=== PATIENT | female | born 1945 | race Caucasian/White ===

== ENCOUNTER 2022-04-05 08:27 | Day surgery (SDC) | payer MEDICARE, SELFPAY ==
[2022-04-05 09:28] VITALS: BP 115/75; PULSE 71; RESP 16; TEMP 37.1; O2SAT 98
[2022-04-05] MEDS: Tropicam./Phenyleph. (1/2.5%) 5 ML BTL OD ×3 (09:37→09:51)
--- NOTE | 2022-04-05 10:18 | W.ANESPRE ---
General Info Date of Service Date Performed: 04/05/22 Height: 5 ft 2 in Weight: 57.2 kg Body Mass Index (BMI): 23.1 Surgical Procedure: Operation Date: 04/05/22 11:40 Proposed Procedure Side Surgeon p Cataract Extraction with IOL Implant Right Adriano Reyna MD Meds Allergies and Home Medications Allergies Allergy/AdvReac Type Severity Reaction Status Date / Time acetaminophen [From Percocet] AdvReac Other (See Verified 04/05/22 09:44 Comment) oxycodone [From Percocet] AdvReac Other (See Verified 04/05/22 09:44 Comment) Home Medication Medication Instructions Recorded atorvastatin 10 mg tablet 10 mg PO DIRECTED 04/01/22 Current Visit Medications: Current Medications Generic Name Dose Route Start Last Admin Trade Name Freq PRN Reason Stop Dose Admin Acetaminophen 1,000 mg 04/05/22 06:00 Acetaminophen 500 Mg Tab PO Q4H PRN PRN Miscellaneous Medication 0 ml 04/05/22 06:00 Prednisolone 1%, Moxifloxacin 0.5%, Nepafenac 0.1% 5ml Btl OD DIRECTED [facility] Miscellaneous Medication 0 ml 04/05/22 06:00 04/05/22 09:51 Tropicam./Phenyleph. 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 She states she has an extra bone in her neck. Actinic keratosis Allergic rhinitis Basal cell carcinoma Cough Dermatochalasis of eyelid Disease of liver Diverticulitis History of postoperative nausea and vomiting HLD (hyperlipidemia) Impaired glucose tolerance Insomnia Malignant tumor of breast Osteoporosis Medical History Comments:: PONV; Pt. states sometimes when she comes out of anesthesia she has a bout of vertigo; please change position slowly; chronic cough, this is her baseline Surgical History Surgical History H/O bilateral mastectomy H/O tubal ligation History of bronchoscopy History of carpal tunnel release Hx of biopsy Shave bx per H&P note Tobacco Smoking/Tobacco Use Status: Never Alcohol Alcohol Intake: current Alcohol intake frequency: a few times a month Alcohol type: wine and hard liquor Substance Use Substance use: Never Substance use type: does not use Vital Signs and Lab Results Vital Signs Most Recent Vital Signs in EMR: Most Recent Vital Signs Temp Pulse Resp BP Pulse Ox 37.1 C 71 16 115/75 98 04/05/22 09:28 04/05/22 09:28 04/05/22 09:28 04/05/22 09:28 04/05/22 09:28 Lab Results Blood Type / Crossmatch: No Data to Display Complete Blood Count: No Data to Display Complete Metabolic Panel: No Data to Display Liver Function Panel: No Data to Display Coagulation Panel: No Data to Display Cardiac Panel: No Data to Display Arterial Blood Gas: No Data to Display Venous Blood Gas: No Data to Display Pancreas Panel: No Data to Display Thyroid Panel: No Data to Display Infectious Disease: No Data to Display Blood Cultures: No Data to Display Toxicology Panel: No Data to Display Anesthesia Assessment and Plan Anesthesia History Personal History: Other Family History: No Family History of Anesthesia Complications Exercise Tolerance Exercise Tolerance: Metabolic Equivalents>4 Pertinent Negatives Pertinent Negatives: No Symptoms of GERD Cardiac & Pulmonary Exam Cardiac Exam: Normal S1/S2 Heart Sounds Pulmonary Exam: Clear Bilateral Breath Sounds Implantable Cardiac Device Does patient have a Pacemaker or an ICD?: No Airway Exam Known Difficult Airway: No Mallampati Class: 2 Mouth Opening: Normal (> 3cm) Thyromental Distance: Greater than 3 cm Neck Range of Motion: Full ROM Neck Circumference: Normal Teeth Condition: Normal Dentition ASA Classification ASA Score: ASA 2 Emergency Case?: No NPO Status NPO Status: NPO Clears >2 hours, Solids >8 hours Anesthesia Plan Resuscitation Status: Full Code Anesthesia Technique: MAC Anesthesia Airway Planned: Natural Airway Monitors Used: Standard Monitors
[2022-04-05 10:19] VITALS: BMI 23.1
[2022-04-05] MEDS: Tetracaine 0.5% 4 ML BTL OD (10:57)
[2022-04-05] MEDS: Balanced Salt Soln.-PLUS 500 ML BAG (10:58)
[2022-04-05] MEDS: Duovisc Viscoelastic System EACH 1 EACH (10:58)
[2022-04-05] MEDS: Lidocaine 2% Jelly 6 ML SYR (10:59)
[2022-04-05] MEDS: Povidone-Iodine Ophth 30 ML BTL (11:02)
--- NOTE | 2022-04-05 11:05 | W.PM.DSUDISC ---
Discharge Plan Disposition Patient Disposition: HOME Condition: Good Discharge Details Attending Provider: Adriano Reyna Primary Care Provider: Marissa Luo Home Meds and New Rx's Prescriptions: No Action atorvastatin 10 mg Tablet 10 mg PO DIRECTED Rx Instructions: EVERY OTHER DAY Discharge Instructions Stand Alone Forms: Post-op Topical Cataract, Tessy Cardoza (DSU) Discharge Orders Discharge Orders: Discharge Order (Routine); Ordered 04/05/22 Ordered By: Adriano Reyna DS: Diagnosis Discharge Diagnosis (1) Cortical cataract of right eye: Status: Resolved (2) Nuclear sclerotic cataract of right eye: Status: Resolved (3) Posterior subcapsular age-related cataract, right eye: Status: Resolved
--- NOTE | 2022-04-05 11:07 | ROE_ITS ---
Date of service: 04/05/22 Time of Service: 11:07 Operative Note Operative Note DATE OF PROCEDURE: 04/05/22 PRE-OP DIAGNOSIS: Nuclear/cortical/posterior subcapsular cataract, right eye POST-OP DIAGNOSIS: same PROCEDURE: Cataract extraction using phacoemulsification with intraocular lens implant, right eye SURGEON: Adriano Reyna ANESTHESIA TYPE: Local By Surgeon and MAC Refer to Anesthesia Record ESTIMATED BLOOD LOSS: 0 PATHOLOGY: none sent COMPLICATIONS: None Patient was transported to: same day Patient's condition: stable Implants: Jeffrey & Jeffrey/RUTHANN Tecnis [id number] Indications: Progressive visual loss due to cataract, right eye Procedure Description: CATARACT SURGERY OPERATIVE REPORT PREOPERATIVE DIAGNOSIS: 1. Nuclear/cortical/posterior subcapsular cataract, right eye POSTOPERATIVE DIAGNOSIS: Same OPERATION: 1. Cataract extraction using phacoemulsification with posterior chamber intraocular lens implant, right eye. IOL: IOL Soda Dispenser/Model: Jeffrey & Jeffrey / RUTHANN Tecnis [id number] IOL Power: + 14.0 diopters IOL Serial Number: [id number] Optic Diameter: 6.0mm Haptic/Overall Diameter: 13.0mm PHACO INFO: Aleks AirCast Mobileurion Vision System with OZil and Active Fluidics Cumulative Dispersed Energy (CDE): 6.95 seconds SURGEON: Adriano Reyna MD, PORTER ANESTHESIA: Monitored Anesthesia Care (MAC), with local sub-tenon's anesthetic infiltration COMPLICATIONS: None SPECIMENS: None INDICATIONS FOR PROCEDURE: The patient is a 76-year-old lady with history of diminished visual acuity in her right eye secondary to the development of significant nuclear/cortical/posterior subcapsular cataract. The option of cataract surgery was offered to the patient and she felt she was symptomatic enough that she wished to proceed. PROCEDURE: The correct surgical eye was identified and marked as the right eye and the pupil was dilated in the preoperative area using mydriatics and cycloplegics. The dilated pupil size was 7.0 mm. The patient elected to proceed without oral sedation. The patient was brought to the operating room where cardiopulmonary monitoring was instituted and surgical time-out was performed, confirming the correct operative eye and IOL power. Topical anesthesia was administered and ophthalmic povidone-iodine 5% was instilled into the conjunctival fornices. Lidocaine gel was applied to the cornea and the safia-ocular area was prepped with Betadine 10% solution and draped in the usual sterile fashion for intraocular surgery, including an aperture drape. A Tegaderm transparent film dressing was cut in half and used to cover the lashes and lid margins. Care was taken to sequester the lashes and lid margins under the Tegaderm dressing. A lid speculum was placed between the lids of the operative eye and the Aleks LuxOR Revalia operating microscope was maneuvered into position. Lillian scissors were then used to make a conjunctival buttonhole approximately 6mm posterior to the limbus in the inferonasal quadrant. Blunt dissection was carried out to expose bare sclera, and a blunt-tipped sub-tenon?s anesthesia cannula was introduced and passed posteriorly along the globe where non- preserved plain lidocaine was injected into posterior sub-Tenon?s space. A sideport knife was used to make a paracentesis port inferotemporally. Intraocular phenylephrine/lidocaine was injected into the anterior chamber. The anterior chamber was filled with viscoelastic. A keratome knife was used to construct a 2-plane near-clear corneal tunnel extending 2.0mm into clear cornea superiortemporally. A flap was raised on the anterior capsule and capsulorhexis forceps were used to complete a continuous curvilinear capsulorhexis of 5.5 mm. Balanced salt solution was then used to perform cortical cleaving hydrodissection and nuclear hydrodelineation until the lens could be freely rotated within the capsular bag. The lens nucleus was then disassembled and removed within the capsular bag and iris plane using phacoemulsification. Residual cortical material was removed using the I/A handpiece. The posterior capsule was carefully polished to remove as much residual lens epithelial cells as safely possible. The capsular bag was then inflated and the anterior chamber deepened with viscoelastic. The lens implant described above was inserted into the capsular bag using the RUTHANN [place] Injector. A Kuglen hook was used to dial the IOL into position. Residual viscoelastic was then removed first from posterior to the IOL, then from the anterior chamber using the I/A handpiece. The lens implant was noted to center nicely within the capsular bag. The incisions were stromally hydrated, and the anterior chamber was reformed using BSS. Then 0.5cc of moxifloxacin 1.0mg/ml were injected into the capsular bag and anterior chamber. The incisions were checked with a Weck spear and found to be secure. Several drops of ophthalmic povidone-iodine 5% were then applied to the eye followed by two drops of Imprimis combination prednisolone/moxifloxacin/nepafenac solution. The drapes were removed and a clear plastic protective eye shield was placed over the eye. The patient was then returned to Same Day Surgery in stable condition.
[2022-04-05 11:08] VITALS: BP 128/67; PULSE 71; RESP 18; TEMP 36.4; O2SAT 97
--- NOTE | 2022-04-05 11:27 | W.ANESPOSTOP ---
Postoperative Evaluation Date, Time and Location Date Performed: 04/05/22 Time Performed: 11:08 Patient Location: Day Surgery Unit Vital Signs Most Recent Imported Vital Signs: Most Recent Vital Signs Temp Pulse Resp BP Pulse Ox 36.4 C L 71 18 128/67 97 04/05/22 11:08 04/05/22 11:08 04/05/22 11:08 04/05/22 11:08 04/05/22 11:08 Pain Score Most Recent Pain Score: Most Recent Pain Score Pain Level 0 04/05/22 11:08 Assessment Mental Status: Awake (Alert & Oriented to Patient Baseline) Airway and Respiratory Function: Patent airway with normal (patient baseline) respiratory exam Cardiovascular Function: Hemodynamically Stable Hydration Status: Adequately Hydrated Nausea & Vomiting: No Nausea or Vomiting Pain: Pt. Denies Any Pain Peripheral Nerve Block: Other (Local by Dr. eRyna)
== END 2022-04-05 11:30 | disposition home or self-care (01) ==
LOC: SUR 08:28
PROVIDERS: Visit Provider Ophthalmology
PROC: (CPT 66984; principal; 2022-04-05 11:30)
DX: H25.041 Posterior subcapsular polar age-related cataract, right eye (principal); E78.5 Hyperlipidemia, unspecified; R73.02 Impaired glucose tolerance (oral)
CPT/HCPCS: 66984; V2632

== ENCOUNTER 2022-04-19 08:41 | Day surgery (SDC) | payer MEDICARE, SELFPAY ==
--- NOTE | 2022-04-19 08:24 | W.ANESPRE ---
General Info Date of Service Date Performed: 04/19/22 Height: 5 ft 2 in Weight: 57.2 kg Body Mass Index (BMI): 23.1 Surgical Procedure: Operation Date: 04/19/22 11:40 Proposed Procedure Side Surgeon p Cataract Extraction with IOL Implant Left Adriano Reyna MD Meds Allergies and Home Medications Allergies Allergy/AdvReac Type Severity Reaction Status Date / Time acetaminophen [From Percocet] AdvReac Other (See Verified 04/19/22 09:21 Comment) oxycodone [From Percocet] AdvReac Other (See Verified 04/19/22 09:21 Comment) Home Medication Medication Instructions Recorded atorvastatin 10 mg tablet 10 mg PO DIRECTED 04/01/22 Current Visit Medications: Current Medications Generic Name Dose Route Start Last Admin Trade Name Freq PRN Reason Stop Dose Admin Acetaminophen 1,000 mg 04/19/22 06:00 Acetaminophen 500 Mg Tab PO Q4H PRN PRN Miscellaneous Medication 0 ml 04/19/22 06:00 Prednisolone 1%, Moxifloxacin 0.5%, Nepafenac 0.1% 5ml Btl OS DIRECTED [facility] Miscellaneous Medication 0 ml 04/19/22 06:00 Tropicam./Phenyleph. 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 She states she has an extra bone in her neck. Actinic keratosis Allergic rhinitis Basal cell carcinoma Cough Dermatochalasis of eyelid Disease of liver Diverticulitis History of herniated intervertebral disc History of postoperative nausea and vomiting HLD (hyperlipidemia) Impaired glucose tolerance Insomnia Malignant tumor of breast Osteoporosis Medical History Comments:: PONV; Pt. states sometimes when she comes out of anesthesia she has a bout of vertigo; please change position slowly; chronic cough, this is her baseline Surgical History Surgical History (Updated 04/19/22 @ 09:20 by Luisa Coronel RN) H/O bilateral mastectomy H/O tubal ligation History of bronchoscopy History of carpal tunnel release Hx of biopsy Shave bx per H&P note Hx of hysterectomy Tobacco Smoking/Tobacco Use Status: Never Alcohol Alcohol Intake: current Alcohol intake frequency: a few times a month Alcohol type: wine and hard liquor Substance Use Substance use: Never Substance use type: does not use Vital Signs and Lab Results Lab Results Blood Type / Crossmatch: No Data to Display Complete Blood Count: No Data to Display Complete Metabolic Panel: No Data to Display Liver Function Panel: No Data to Display Coagulation Panel: No Data to Display Cardiac Panel: No Data to Display Arterial Blood Gas: No Data to Display Venous Blood Gas: No Data to Display Pancreas Panel: No Data to Display Thyroid Panel: No Data to Display Infectious Disease: No Data to Display Blood Cultures: No Data to Display Toxicology Panel: No Data to Display Anesthesia Assessment and Plan Anesthesia History Personal History: PONV (due to positional changes/vertigo history. ) Family History: No Family History of Anesthesia Complications Exercise Tolerance Exercise Tolerance: Metabolic Equivalents>4 Pertinent Negatives Pertinent Negatives: No Symptoms of GERD, No Major Cardiovascular Symptoms or Complaints, No Major Pulmonary Symptoms or Complaints and No History of CVA/TIA Cardiac & Pulmonary Exam Cardiac Exam: Normal S1/S2 Heart Sounds Pulmonary Exam: Clear Bilateral Breath Sounds Implantable Cardiac Device Does patient have a Pacemaker or an ICD?: No Airway Exam Known Difficult Airway: No Mallampati Class: 2 Mouth Opening: Normal (> 3cm) Thyromental Distance: Greater than 3 cm Neck Range of Motion: Full ROM Neck Circumference: Normal Teeth Condition: Normal Dentition ASA Classification ASA Score: ASA 2 Emergency Case?: No NPO Status NPO Status: NPO Clears >2 hours, Solids >8 hours Anesthesia Plan Resuscitation Status: Full Code Anesthesia Technique: MAC Anesthesia Airway Planned: Natural Airway Monitors Used: Standard Monitors
[2022-04-19 09:25] VITALS: BP 136/53; PULSE 64; RESP 17; TEMP 36.6; O2SAT 100
[2022-04-19] MEDS: Tropicam./Phenyleph. (1/2.5%) 5 ML BTL OS ×3 (09:25→09:45)
[2022-04-19 09:40] VITALS: BMI 23.1
[2022-04-19] MEDS: Tetracaine 0.5% 4 ML BTL OS (10:38)
[2022-04-19] MEDS: Povidone-Iodine Ophth 30 ML BTL (10:39)
[2022-04-19] MEDS: Lidocaine 2% Jelly 6 ML SYR (10:40)
[2022-04-19] MEDS: Balanced Salt Soln.-PLUS 500 ML BAG (10:44)
[2022-04-19] MEDS: Duovisc Viscoelastic System EACH 1 EACH (10:44)
[2022-04-19 11:01] VITALS: BP 134/68; PULSE 64; RESP 16; TEMP 36.7; O2SAT 99
--- NOTE | 2022-04-19 11:02 | W.PM.DSUDISC ---
Discharge Plan Disposition Patient Disposition: HOME Condition: Good Discharge Details Attending Provider: Adriano Reyna Primary Care Provider: Marissa Luo Home Meds and New Rx's Prescriptions: No Action atorvastatin 10 mg Tablet 10 mg PO DIRECTED Rx Instructions: EVERY OTHER DAY Discharge Instructions Stand Alone Forms: Post-op Topical Cataract, Tessy Cardoza (DSU) Discharge Orders Discharge Orders: Discharge Order (Routine); Ordered 04/19/22 Ordered By: Adriano Reyna DS: Diagnosis Discharge Diagnosis (1) Cortical cataract of left eye: Status: Resolved (2) Nuclear sclerotic cataract of left eye: Status: Resolved (3) Posterior subcapsular age-related cataract of left eye: Status: Resolved
--- NOTE | 2022-04-19 11:04 | ROE_ITS ---
Date of service: 04/19/22 Time of Service: 11:04 Operative Note Operative Note DATE OF PROCEDURE: 04/19/22 PRE-OP DIAGNOSIS: Nuclear/cortical/posterior subcapsular cataract, left eye POST-OP DIAGNOSIS: same PROCEDURE: Cataract extraction using phacoemulsification with intraocular lens implant, left eye SURGEON: Adriano Reyna ANESTHESIA TYPE: Local By Surgeon and MAC Refer to Anesthesia Record PATHOLOGY: none sent COMPLICATIONS: None Patient was transported to: same day Patient's condition: stable Implants: Jeffrey and Jeffrey / [employer] Tecnis [id number] Indications: Progressive decreased vision due to cataract, left eye Procedure Description: CATARACT SURGERY OPERATIVE REPORT PREOPERATIVE DIAGNOSIS: 1. Nuclear/cortical/posterior subcapsular cataract, left eye POSTOPERATIVE DIAGNOSIS: Same OPERATION: 1. Cataract extraction using phacoemulsification with posterior chamber intraocular lens implant, left eye. IOL: IOL Road Freight Brake Coupler/Model: Jeffrey & Jeffrey / RUTHANN Tecnis [id number] IOL Power: + 13.5 diopters IOL Serial Number: [id number] Optic Diameter: 6.0 mm Haptic/Overall Diameter: 13.0 mm PHACO INFO: Aleks Mobilepoliceurion Vision System with OZil and Active Fluidics Cumulative Dispersed Energy (CDE): 6.49 seconds SURGEON: Adriano Reyna MD, PORTER ANESTHESIA: Monitored A [facility] (MAC), with local sub-tenon's anesthetic infiltration COMPLICATIONS: None SPECIMENS: None INDICATIONS FOR PROCEDURE: The patient is a 76-year-old lady with history of diminished visual acuity in both eyes secondary to development of bilateral nuclear/cortical/posterior subcapsular cataract. She has already undergone cataract surgery in her right eye and is doing well postoperatively. She now presents for cataract surgery in the left eye. PROCEDURE: The correct surgical eye was identified and marked as the left eye and the pupil was dilated in the preoperative area using mydriatics and cycloplegics. The dilated pupil size was 7.0 mm. The patient elected to proceed without oral sedation. The patient was brought to the operating room where cardiopulmonary monitoring was instituted and surgical time-out was performed, confirming the correct operative eye and IOL power. Topical anesthesia was administered and ophthalmic povidone-iodine 5% was instilled into the conjunctival fornices. Lidocaine gel was applied to the cornea and the safia-ocular area was prepped with Betadine 10% solution and draped in the usual sterile fashion for intraocular surgery, including an aperture drape. A Tegaderm transparent film dressing was cut in half and used to cover the lashes and lid margins. Care was taken to sequester the lashes and lid margins under the Tegaderm dressing. A lid speculum was placed between the lids of the operative eye and the Aleks LuxOR Revalia operating microscope was maneuvered into position. Lillian scissors were then used to make a conjunctival buttonhole approximately 6mm posterior to the limbus in the inferonasal quadrant. Blunt dissection was carried out to expose bare sclera, and a blunt-tipped sub-tenon?s anesthesia cannula was introduced and passed posteriorly along the globe where non- preserved plain lidocaine was injected into posterior sub-Tenon?s space. A sideport knife was used to make a paracentesis port superiorly/superiortemporally. Intraocular phenylephrine/lidocaine was injected int the anterior chamber.. The anterior chamber was filled with viscoelastic. A keratome knife was used to construct a 2-plane near-clear corneal tunnel extending 2.0mm into clear cornea temporally. A flap was raised on the anterior capsule and capsulorhexis forceps were used to complete a continuous curvilinear capsulorhexis of 5.0 mm. Balanced salt solution was then used to perform cortical cleaving hydrodissection and nuclear hydrodelineation until the lens could be freely rotated within the capsular bag. The lens nucleus was then disassembled and removed within the capsular bag and iris plane using phacoemulsification. Residual cortical material was removed using the 45-degree angled silicone I/A tip with 0.3mm port. The posterior capsule was carefully polished to remove as much residual lens epithelial cells as safely possible. The capsular bag was then inflated and the anterior chamber deepened with viscoelastic. The lens implant described above was inserted into the capsular bag using the RUTHANN [place] Injector. A Kuglen hook was used to dial the IOL into position. Residual viscoelastic was then removed first from posterior to the IOL, then from the anterior chamber using the I/A handpiece. The lens implant was noted to center nicely within the capsular bag. The incisions were stromally hydrated, and the anterior chamber was reformed using BSS. Then 0.5cc of moxifloxacin 1.0mg/ml were injected into the capsular bag and anterior chamber. The incisions were checked with a Weck spear and found to be secure. Several drops of ophthalmic povidone-iodine 5% were then applied to the eye followed by two dr ops of Imprimis combination prednisolone/moxifloxacin/nepafenac solution. The drapes were removed and a clear plastic protective eye shield was placed over the eye. The patient was then returned to Same Day Surgery in stable condition.
--- NOTE | 2022-04-19 11:13 | W.ANESPOSTOP ---
Postoperative Evaluation Date, Time and Location Date Performed: 04/19/22 Time Performed: 11:14 Patient Location: Day Surgery Unit Vital Signs Most Recent Imported Vital Signs: Most Recent Vital Signs Temp Pulse Resp BP Pulse Ox 36.7 C 64 16 134/68 99 04/19/22 11:01 04/19/22 11:01 04/19/22 11:01 04/19/22 11:01 04/19/22 11:01 Pain Score Most Recent Pain Score: Most Recent Pain Score Pain Level 0 04/19/22 11:01 Assessment Mental Status: Awake (Alert & Oriented to Patient Baseline) Airway and Respiratory Function: Patent airway with normal (patient baseline) respiratory exam Cardiovascular Function: Hemodynamically Stable Hydration Status: Adequately Hydrated Nausea & Vomiting: No Nausea or Vomiting Pain: Pt. Denies Any Pain Peripheral Nerve Block: Patient did not receive a nerve block
== END 2022-04-19 11:20 | disposition home or self-care (01) ==
LOC: SUR 08:42
PROVIDERS: Visit Provider Ophthalmology
PROC: (CPT 66984; principal; 2022-04-19 11:30)
DX: H25.042 Posterior subcapsular polar age-related cataract, left eye (principal)
CPT/HCPCS: 66984; V2632